=== PATIENT | female | born 1995 | race Two or more races ===

== ENCOUNTER 2016-10-07 12:15 | Outpatient (CLI) | payer OTHER ==
[~2016-10-07] VITALS: Ht 172.7 cm; Wt 92.0 kg
[2016-10-08] MEDS ORDERED: PRENTAB9 PO (17:35)
== END 2016-10-07 13:10 | disposition home or self-care (01) ==
LOC: M LDO 12:15
PROVIDERS: ATTEND Obstetrics & Gynecology
DX: Z34.83 Encounter for supervision of other normal pregnancy, third trimester (principal); Z3A.41 41 weeks gestation of pregnancy

== ENCOUNTER 2016-10-08 17:31 | Inpatient (IN) | payer OTHER ==
[2016-10-08] VITALS (11 sets, daily range): BP systolic 107–176; BP diastolic 59–92
[~2016-10-08] VITALS: Ht 172.7 cm; Wt 94.0 kg
[2016-10-08] MEDS ORDERED: PRENTAB9 PO (17:35)
[2016-10-08] MEDS ORDERED: LR 1,000 ML IV SCH (19:19)
[2016-10-08] MEDS ORDERED: LACTATED RINGER'S 1000 ML IV STA (19:19)
[2016-10-08 19:30] LABS: MEAN CORPUSCULAR HEMOGLOBIN 28.1 pg (27.0-33.0); MEAN CORPUSCULAR HGB CONC 34.1 g/dl (32.0-36.5); MEAN CORPUSCULAR VOLUME 82.3 fl (80.0-96.0); RED CELL DISTRIBUTION WIDTH 13.8 % (11.5-14.5); WHITE BLOOD COUNT 14.7 K/mm3 (4.0-10.0)
[2016-10-08] MEDS ORDERED: OXYTOCIN DRIP 30 UNITS in APPROPRIATE DILUENT 1 EA IV SCH (19:30)
--- NOTE | 2016-10-08 19:41 | HPEPDOC ---
Obstetrical History & Physical General Date of Admission Oct 08, 2016 at 17:31 History of Present Illness 21 yo @ 41+1 by LMP and 7 wk US presents to L&D for scheduled IOL d/t pending post-dates. Reports she has been having regular CTXs all day. Denies LOF, DFM and VB. GBS negative. Chief Complaint: Induction of labor Information Provided By: Patient Age: 21 : 2 Term: 0 Pre-term: 0 Abortions: 1 Livin Care Care: Good Care Number of Visits: 11 Dating Final EDC: Sep 30, 2016 Final EDC for Daily Update: Sep 30, 2016 Final EDC by: LMP LMP: Dec 25, 2015 1st Trimester Date: Feb 23, 2016 Weeks + Days: 7.0 Estimated Date of Confinement: Sep 30, 2016 EGA at Admission: 41.1 Antepartum Course Diagnos(e)s 1. chronic back pain- sees PT 2. excessive wt gain 3. 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: No pertinent history Past Medical History Medical History chronic back pain Surgical History: Tonsilectomy (2010), [place] teeth (2010) Family History Significant Family History: No pertinent family hx Social History Marital Status: Family situation: Spouse/partner home Psychosocial History: No pertinent psych hx * Smoker: non-smoker Alcohol: Denies Drugs: denies Abuse Violence Screening Have you been hit/kicked/slapp: No Have you been sexually assault: No Imunizations Tdap status: current ([id number]) Influenza Status: declined Allergies Coded Allergies: No Known Allergies (Unverified , 10/07/16) Medications Scheduled Multivitamins/ ( 27-0.8 mg) 1 Tab Tab, 1 TAB PO DAILY Physical Examination Physical Examination GENERAL: A&O x 3 ABDOMEN: Gravid and non-tender to touch. FETUS: VTX by SVE and Yuniel. HEART RATE: RRR, no m/r/g LUNGS: CTA EXTREMITIES: No edema. No clonus. DTR + 1 EFW- 3600 grams Vital Signs/I&O Vital Signs Date Time Temp Pulse Resp B/P (MAP) Pulse Ox O2 Delivery O2 Flow Rate FiO2 10/08/16 17:45 83 121/69 (86) Laboratory Data [facility] Laboratory Tests 2 10/08/16 18:41: Serology Scanned Report Hepatitis B Testing CBC/BMP 11.0/12.2/35.6/171 Pertinent Laboratoy Data Blood Type: O+ RBC Antibody Screen: Negative HIV: Positive Hepatitis B: Negative Hepatitis C: Unknown Rapid Plasma Reagin: Nonreactive Rubella: Immune Varicella: Immune Chlamydia/Gonorrhea: Negative Group B Streptococcus: Negative Cystic Fibrosis: Negative Glucose Tolerance Test: 143 Anatomy Ultrasound Ultrasound Date: May 16, 2016 Placenta Location: Posterior Normal Anatomy: Yes Placenta Previa: No Estimated Weight (grams): 333 Steroid Therapy Steroid Therapy: No Vaginal Examination Dilation: 3 cm Effacement: 80+% Station: -2 Cervical Consistency: Soft Cervical Position: Middle Presentation: Cephalic presentation Position: Vertex (occiput) Assessment Heart Rate (FHR): 130 Variability: Moderate Accelerations: Positive Decelerations: None Tocometer Contractions: Yes Frequency: regular, other (Q 3-4 min) Duration: less than 90 seconds Strength: palpated as moderate, resting tone palp/soft Multi-drug resistant Organism: No history of MDRO Assessment/Plan Assessment 21 yo @ 41+1 by LMP and 7 wk US presents to L&D for scheduled IOL d/t pending post-dates. CAT I FHR tracing, minimal cervical change since yesterday. Plan Admit and orient. Phosphoric Acid Operator and consent. Diet: regular GBS negative Labs and IV unit protocol. Counseled on Pitocin IOL LR 1000 ml bolus, then 125 ml/hr Anticipate C-S as appropriate. PRANEETH RICE CNM Oct 08, 2016 19:40
[2016-10-08] MEDS ORDERED: FENTANYL 2MCG/ML ROPIVACAINE 0.2% IN 0.9% NACL 200ML IVBAG As Ordered ONE (21:55)
[2016-10-08] MEDS ORDERED: ePHEDrine SULFATE 25 MG/5 ML(5MG/ML) SYRINGE IV PRN (23:15)
[2016-10-08] MEDS ORDERED: ONDANSETRON 4MG/2ML VIAL (J2405) IV PRN (23:15)
[2016-10-08] MEDS ORDERED: EPIDURAL COMMENT XX SCH (23:15)
[2016-10-08] MEDS ORDERED: LACTATED RINGER'S 1000 ML IV PRN (23:15)
[2016-10-08] MEDS ORDERED: REFRIGERATOR IV KEYS XX PRN (23:15)
[2016-10-08] MEDS ORDERED: NALOXONE INJ 0.4 MG/1 ML VIAL (J2310) IV PRN (23:15)
[2016-10-08] MEDS ORDERED: EPIDURAL/PCA KEYS XX PRN (23:15)
[2016-10-08] MEDS ORDERED: FENTANYL/ROPIVACAINE/NACL BAG 200 ML EPIDURAL SCH (23:15)
[2016-10-08] MEDS ORDERED: diphenhydrAMINE INJ 50MG/ML VIAL (J1200) IV PRN (23:15)
[2016-10-09] VITALS (19 sets, daily range): BP systolic 103–150; BP diastolic 53–84
[2016-10-09] MEDS ORDERED: OXYTOCIN DRIP 30 UNITS in APPROPRIATE DILUENT 1 EA IV SCH (06:29)
[2016-10-09] MEDS ORDERED: PROMETHAZINE 25 MG TAB PO PRN (06:30)
[2016-10-09] MEDS ORDERED: DIBUCAINE 1% OINTMENT 30GM TOP PRN (06:30)
[2016-10-09] MEDS ORDERED: DOCUSATE SODIUM 100 MG CAP PO PRN (06:30)
[2016-10-09] MEDS ORDERED: MOM 30ML SUSPENSION UDC PO PRN (06:30)
[2016-10-09] MEDS ORDERED: ONDANSETRON 4MG/2ML VIAL (J2405) IV PRN (06:30)
[2016-10-09] MEDS ORDERED: ACETAMINOPHEN 500 MG TAB PO PRN (06:30)
--- NOTE | 2016-10-09 06:34 | DNPDOC ---
[facility] Delivery Note Delivery Note DATE OF DELIVERY: [id number] @ 0549 PREDELIVERY DIAGNOSIS: 41+2 weeks' gestation and labor. POST DELIVERY DIAGNOSIS: Delivered. PROCEDURE: Spontaneous vaginal delivery CUT OUT OPERATOR: Aleyda Ponce CNM ANESTHESIA: epidural ESTIMATED BLOOD LOSS: 300 mL. FINDINGS: 9 pound 13 ounce female infant, Score 8/9 DELIVERY SUMMARY: Patient is a 21 yo G2 now P1011 admitted to labor and delivery for IOL d/t pending post-dates. Progressed to c/c/+2 with epidural infusing and a strong desire to push; delivery was via of a viable female to a clean field; the infant presented occiput anterior with no nuchal cord noted; anterior shoulder(right) delivered with mild downward traction, then the posterior shoulder delivered with mild upward traction; remainder of corpus delivered spontaneously; infant placed on mother's abdomen. Initial cleaning completed, delayed cord clamping x 3 minutes, then cord clamped x 2 and cut by FOB; the child had a vigorous cry and was moved to mother's chest for [id number]; pitocin was started with delivery of the anterior shoulder; 3 vessel cord and normal placenta were delivered without complications approx 10 minutes later; fundal massage was applied and vaginal vault was swept for clots ; vagina and perineum examined; right labial and post vaginal vault pin hole noted and repaired. Fundus firm at U-1. UFA=769 ml, Infant had 8/9; mother and infant are bonding well and were stable in the delivery room; anticipate routine PP course. Delivering Provider: BREN Edmonds KELLI C. CNM Oct 09, 2016 06:34
[2016-10-09] MEDS: IBUPROFEN 800 MG TAB PO PRN ×2 (07:59→20:25)
[2016-10-09] MEDS: PRENATAL VITAMINS CHEWABLE TABLET PO SCH (07:59)
[2016-10-10 02:00] VITALS: BP 114/58
[2016-10-10 05:50] VITALS: BP 110/58
[2016-10-10] MEDS ORDERED: INFLUENZA QUADRIVALENT PF VACCINE 0.5ML SYRINGE (90686) IM ONE (09:00)
[2016-10-10] MEDS: PRENATAL VITAMINS CHEWABLE TABLET PO SCH (09:50)
[2016-10-10 18:00] VITALS: BP 130/60
[2016-10-10] MEDS: IBUPROFEN 800 MG TAB PO PRN (20:46)
[2016-10-11] MEDS: IBUPROFEN 800 MG TAB PO PRN (05:24)
[2016-10-11 05:51] VITALS: BP 123/58
[2016-10-11] MEDS ORDERED: ACET50TA PO (09:25)
[2016-10-11] MEDS ORDERED: ADVI200C5 PO (09:25)
[2016-10-11] MEDS ORDERED: NUPE1OIN2 TOP (09:25)
--- NOTE | 2016-10-11 10:33 | DSES ---
DATE OF ADMISSION: 10/08/2016 DATE OF DISCHARGE: This lady is a 21-year-old, 2 now para 1 admitted for induction of labor, late term, was david. Had a spontaneous vaginal delivery of a live female 9 pounds 13 ounces, scores of 8 and 9 at 1 and 5 minutes respectively with epidural in place. She has complained during the entire of chronic back pain. On discharge, we discussed phlebitis, cystitis, mastitis, endometritis and cellulitis, diet, exercise, pain management, perineal, breast and wound care. Her vital signs on discharge are blood pressure 123/58, respirations 16, pulse 70, temperature 97.8. Her admitting hemoglobin was 11.7, hematocrit 34.3 and platelets are 256. The rest the examination unremarkable. She is normocephalic, atraumatic. Neck with full range of motions. Pupils equal and reactive to light. Distal pulses symmetric. No evidence of deep vein thrombosis (DVT), PE or superficial phlebitis. Chest is clear bilaterally to the bases. No wheezes or rhonchi. No costovertebral angle tenderness. Uterus to the two below. Lochia is moderate. Perineum is healing. Four quadrant bowel sounds are noted. No rashes, lesions or pruritus. No arthralgia, myalgia. No complaints of cough, wheezes, shortness of breath or dyspnea on exertion. No chest pain. No bleeding. Neuro complete. No incontinence, urgency, frequency. No nausea, vomiting, diarrhea, constipation. No diabetic issues. 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 Past medical unremarkable. Past surgical unremarkable. Family history noncontributory. She does not smoke, drink or abuse drugs. No domestic violence. She has good support at home. In summary, we have a late term gestation, delivered a live female . Plan discharge today with medications in hand and a 6-week checkup at [facility].
== END 2016-10-11 11:00 | disposition home or self-care (01) | DRG 775 ==
LOC: M LDI 17:31 → M OBS 10-09 09:08
PROVIDERS: ADMIT Midwife; ATTEND Midwife
PROC: 10E0XZZ Delivery of Products of Conception, External Approach (ICD-10-PCS; principal; 2016-10-09)
PROC: 0HQ9XZZ Repair Perineum Skin, External Approach (ICD-10-PCS; 2016-10-09)
DX: O48.0 Post-term pregnancy (principal); Z37.0 Single live birth; Z3A.41 41 weeks gestation of pregnancy; O26.03 Excessive weight gain in pregnancy, third trimester; M54.9 Dorsalgia, unspecified; Z79.899 Other long term (current) drug therapy; O70.0 First degree perineal laceration during delivery; O26.893 Other specified pregnancy related conditions, third trimester